=== PATIENT | male | born 2005 | race Caucasian/White ===

== ENCOUNTER 2025-01-11 15:50 | Emergency (ER) | payer MEDICAID ==
[2025-01-11] MEDS: Diphtheria,Pertussis(Acell),Tetanus Vaccine 0.5 ML Syringe IM ONE (16:39)
== END 2025-01-11 16:40 | disposition home or self-care (01) ==
LOC: JD.ED 15:50
DX: S61.211A Laceration without foreign body of left index finger without damage to nail, initial encounter (principal); W26.8XXA Contact with other sharp object(s), not elsewhere classified, initial encounter
CPT/HCPCS: 12001; 90471; 90715; 99282-25; 99283